=== PATIENT | female | born 1965 | race American Indian/Alaskan Native ===

== ENCOUNTER 2020-12-19 14:59 | Outpatient (CLI) | payer BC ==
--- NOTE | 2020-12-23 08:45 | Mammography Report ---
DIGITAL SCREENING MAMMOGRAM WITH TOMOSYNTHESIS WITH CAD, 12/23/2020 CLINICAL INFORMATION / INDICATION: Routine Screening Mammography. TECHNIQUE: Digital bilateral 2D and 3D mammography with tomosynthesis was obtained in the craniocaud al and mediolateral oblique projections. Computer-Aided Detection (CAD) analysis was used for interp retation of this study. COMPARISON: Prior mammograms 11/28/2019 and 11/02/2018 FINDINGS: Breast Density: The breasts are almost entirely fatty. No dominant mass, suspicious calcifications, or architectural distortion in the right breast. There is a new 4 mm group of calcifications in the 9:00 position of the left breast, middle depth, wh ich requires further evaluation. IMPRESSION: 1. A new small group of calcifications in the left breast requires further evaluation with magnificat ion views. Follow up recommendation: Special View: Mag BI-RADS Category 0: Incomplete. Needs additional imaging evaluation and/or prior mammograms for carmelo rison. A "normal" or negative report should not discourage follow up or biopsy of a clinically significant f inding. A written summary of these findings will be mailed to the patient. The patient will be entered into a mammography reporting system which will generate a reminder letter for the patient's next appointmen t at the appropriate interval. The [employer] recommends yearly mammograms starting at age 40 and continuing as l luisana as a woman is in good health. Breast MRI is recommended for women with an approximate 20-25% or greater lifetime risk of breast cancer, including women with a strong family history of breast or ova jeanine cancer or who have been treated for Hodgkin's disease. Signer Name: Gisele Verma MD Signed: 12/23/2020 8:40 AM Workstation Name: [id number]
== END 2020-12-19 15:00 | disposition home or self-care (01) ==
LOC: SPVWC 14:59
PROVIDERS: ATTEND Surgery
DX: Z12.31 Encounter for screening mammogram for malignant neoplasm of breast (principal); N64.89 Other specified disorders of breast
CPT/HCPCS: 77063; 77067

== ENCOUNTER 2021-01-07 13:23 | Outpatient (CLI) | payer BC ==
--- NOTE | 2021-01-07 14:27 | Mammography Report ---
DIGITAL DIAGNOSTIC MAMMOGRAM WITH CAD, 01/07/2021 INDICATION: Abnormal screening mammogram. Screening recall of the left breast for calcifications. TECHNIQUE: Digital left mammographic imaging was performed. Magnification views were obtained. This examination was interpreted with the benefit of Computer-aided Detection analysis. COMPARISON: Screening mammogram, 12/19/2020 and 12/18/2019 FINDINGS: Breast Density: The breasts are almost entirely fatty. Magnification views were obtained which demonstrate a few coarse grouped calcifications at the 9:00 p osition middle depth which have a benign morphology. No suspicious cluster of microcalcifications are identified. IMPRESSION: Follow up recommendation: Short term follow up in 6 months. BI-RADS Category 3: Probably Benign. Followup in 6 months. New left breast calcifications as describ ed which demonstrate a benign morphology and represent a likely benign morphology. A six-month follow -up left mammogram is recommended to document stability. A "normal" or negative report should not discourage follow up or biopsy of a clinically significant f inding. A written summary of these findings will be mailed to the patient. The patient will be entered into a mammography reporting system which will generate a reminder letter for the patient's next appointmen t at the appropriate interval. According to the [employer], yearly mammograms are recommended starting at age 40 and continuing as long as a woman is in good health. Breast MRI is recommended for women with an ellie roximately 20-25% or greater lifetime risk of breast cancer, including women with a strong family his tory of breast or ovarian cancer and women who have been treated for Hodgkin's disease. Signer Name: Charity Rodriguez MD Signed: 01/07/2021 2:22 PM Workstation Name: [id number]
== END 2021-01-07 13:24 | disposition home or self-care (01) ==
LOC: SPVWC 13:23
PROVIDERS: ATTEND Surgery
DX: R92.1 Mammographic calcification found on diagnostic imaging of breast (principal)